=== PATIENT | female | born 1990 | race Caucasian/White ===

== ENCOUNTER 2016-09-22 16:02 | Emergency (ER) ==
[2016-09-22 16:33] LABS: MANUAL DIFF NEEDED? NO
[2016-09-22 16:36] LABS: BASO% 0.8 % (0.0-0.8); EOS# 0.17 X1000 (0.0-0.7); EOS% 2.3 % (0.0-10.0); HEMATOCRIT 40.6 % (37.0-47.0); IMM GRAN# 0.08 X1000 (0.0-0.04); IMM GRAN% 1.1 % (0.0-0.5); LYMPH# 2.41 X1000 (1.2-3.4); LYMPH% 32.8 % (20.5-51.1); MCH 32.3 PG (27-31); MCHC 34.5 g/dL (33-37); MCV 93.8 FL (81-99); MONO# 0.68 X1000 (0.11-0.59); MONO% 9.3 % (1.7-9.3); MPV 10.1 FL (7.4-10.4); NEUT% 53.7 % (42.2-75.2); PLT 270 X1000 (130-400); RBC 4.33 XMIL (4.2-5.4)
[2016-09-22 16:55] LABS: AGAP 9; ALBUMIN 4.3 g/dL (3.5-5.0); ALKALINE PHOSPHATASE 91 U/L (32-104); BUN 6 mg/dL (8-22); CALCIUM 9.1 mg/dL (8.8-10.2); CHLORIDE 103 mmol/L (98-107); COSMO 270; GOT 20 U/L (10-30); GPT 22 U/L (10-36); POTASSIUM 3.2 mmol/L (3.5-5.1); SODIUM 136 mmol/L (136-145); TCO2 23 mmol/L (25-35); TOTAL PROTEIN 7.5 g/dL (6.3-8.3)
--- NOTE | 2016-09-22 17:12 | EKG Report ---
Test Performed on : 09/22/2016 5:01:03 PM Test Reason : poss seizure Blood Pressure : / mmHG Vent. Rate : 105 BPM Atrial Rate : 105 BPM P-R Int : 138 ms QRS Dur : 078 ms QT Int : 328 ms P-R-T Axes : 056 015 062 degrees QTc Int : 433 ms Sinus tachycardia. Anterior infarct , age undetermined Abnormal ECG No previous ECGs available Unconfirmed Result
[2016-09-22 17:14] LABS: URINE SOURCE CLEAN CATCH
[2016-09-22 17:22] LABS: BILIRUBIN URINE NEGATIVE (NEGATIVE); BLOOD URINE NEGATIVE (NEGATIVE); CLARITY CLEAR (CLEAR); COLOR YELLOW; GLUCOSE URINE NEGATIVE (NEGATIVE); LEUKOCYTES URINE TRACE (NEGATIVE); NITRITE URINE NEGATIVE (NEGATIVE); PROTEIN URINE NEGATIVE (NEGATIVE); SP GRAVITY URINE 1.005; UROBILINOGEN URINE NORMAL
[2016-09-22 17:23] LABS: URINE CAST NONE SEEN /LPF; URINE CRYSTAL NONE SEEN /HPF; URINE CULTURE PL NEEDED? YES; URINE EPITHELIAL CELLS <10 /HPF (<10); URINE WBC <10 /HPF (<10)
[2016-09-22 17:32] LABS: UR AMPHETAMINES QUAL PRESUMPTIVE POSITIVE (NONE DETECT); UR BARBITUATES QUAL NONE DETECTED (NONE DETECT); UR BENZODIAZEPIN QUAL NONE DETECTED (NONE DETECT); UR CANNABINOIDS QUAL NONE DETECTED (NONE DETECT); UR COCAINE QUAL NONE DETECTED (NONE DETECT); UR MDMA QUAL NONE DETECTED (NONE DETECT); UR METHADONE QUAL NONE DETECTED (NONE DETECT); UR METHAMPHETAMINE QUAL NONE DETECTED (NONE DETECT); UR OPIATES QUAL NONE DETECTED (NONE DETECT); UR OXYCODONE QUAL NONE DETECTED (NONE DETECT); UR PCP QUAL NONE DETECTED (NONE DETECT); UR TCA QUAL NONE DETECTED (NONE DETECT)
[2016-09-22] MEDS ORDERED: KLOR-CON PO ONE (17:39)
--- NOTE | 2016-09-22 17:39 | PROVIDER DOCUMENTATION ---
HPI-General Adult - General Source: patient - History of Present Illness -Gen Adult Nature of Presenting Problems: Pt is 26 y/o F presents to the ED with possible seizure. EMS states Pt was at the movies and was laying on a bench just staring, so the person with her called EMS. Pt states hx of seizures. Location of Pain/Injury: reports: none Pain Radiation: reports: no radiation Quality of Pain: reports: none Onset/Duration: reports: just prior to arrival Context/Activities at Onset: reports: light activity Modifying Factors: improves with: nothing Associated Symptoms: reports: denies symptoms <Ary Humphries - Last Filed: 09/22/16 17:39> <Silvino Nava - Last Filed: 09/22/16 17:46> - General Chief Complaint: Seizure Stated Complaint: possible seizure Time Seen by Provider: 09/22/16 16:03 Allergies/Adverse Reactions: Patient Allergies Allergy/AdvReac Type Severity Reaction Status Date / Time No Known Allergies Allergy Verified 09/22/16 16:12 Home Medications: Home Medication List Medication Instructions Recorded Confirmed Last Taken Type Dextroamphetamine/Amphetamine 30 mg 09/22/16 09/22/16 History [Adderall Xr 30 mg Capsule] Divalproex E.r. [Depakote ER] 500 mg pe BID 09/22/16 09/22/16 09/22/16 History Sertraline HCl [Zoloft] 100 mg 09/22/16 09/22/16 History Temazepam [Restoril] 7.5 mg 09/22/16 Unknown History Topiramate [Topamax] 100 mg 09/22/16 09/22/16 History Valsartan [Diovan] 40 mg 09/22/16 09/22/16 History Review of Systems - Adult - REVIEW OF SYSTEMS - ADULT Constitutional: denies: chills, fever Eyes: denies: blurred vision, double vision Ears, Nose, Mouth & Throat: denies: ear pain, nose pain, throat pain Cardiovascular: reports: irregular heart rate ( tachy). denies: chest pain, heart murmur Respiratory: denies: cough, shortness of breath, wheezing Gastrointestinal: denies: abdominal pain, diarrhea, nausea, vomiting Genitourinary: denies: dysuria, hematuria Musculoskeletal: denies: bone pain, joint pain, neck pain Integumentary: denies: hives, itching Neurological: reports: seizure (possible). denies: dizziness/vertigo, headache/ migraines Psychiatric: reports: no symptoms reported Endocrine: reports: no symptoms reported Hematologic/Lymphatic: reports: no symptoms reported Allergic/Immunologic: reports: no symptoms reported All Other Systems: Reviewed and Negative <Lucy Humphriesomi - Last Filed: 09/22/16 17:39> Past History - Adult - PAST MEDICAL HISTORY-ADULT Review of Records: reports: Nursing Assessment Review, Medications Reviewed, Social history reviewed & non-contributory. Major Childhood Illnesses: reports: denies history Cardiovascular: reports: denies history Respiratory: reports: denies history Gastrointestinal: reports: denies history Obstetrical/Gynecological: reports: denies history Genitourinary: reports: denies history Musculoskeletal: reports: denies history Neurological: reports: Seizures/Epilepsy Endocrine/Immune: reports: denies history Other Conditions: reports: denies history - PRIOR SURGERIES/PROCEDURES Surgical/Procedure History: reports: reviewed, not pertinent - IMMUNIZATION STATUS Childhood Immunizations: See Nurse Assessment Flu Vaccine: See Nurse Assessment - FAMILY HISTORY Family History: reviewed, not pertinent - SOCIAL HISTORY Smoking: denies Substance Use: denies Living Situation: group (care home) <Miguel Humphriesi - Last Filed: 09/22/16 17:39> Physical Exam-General - PHYSICAL EXAM-ADULT Initial Vital Signs Reviewed: Yes - CONSTITUTIONAL General Appearance: appears well, alert, no apparent distress - EYES Eyes: PERRL/EOMI, pink conjunctivae, fundi clear, no AV nicking - HEAD, EARS, NOSE, MOUTH & THROAT HENMT: normocephalic/atraumatic, moist mucous membranes, normal ENT inspection, TMs normal, pharynx normal - NECK Neck: non-tender, full range of motion, supple, normal inspection - RESPIRATORY Respiratory: chest non-tender, lungs clear, normal breath sounds, no pleuratic chest pain, no respiratory distress, no accessory muscle use - CARDIOVASCULAR Cardiovascular: normal peripheral pulses, no edema, no gallop, no JVD, no murmur , tachycardia - GASTROINTESTINAL (ABDOMEN) Abdominal Exam: normal bowel sounds, non tender, soft, no organomegaly, no pulsatile mass - LYMPHATIC Lymphatic: no adenopathy - MUSCULOSKELETAL Back Exam: normal inspection, no CVA tenderness, no vertebral tenderness Extremity: normal range of motion, non-tender, normal gait, normal inspection, no pedal edema - SKIN Integumentary: normal color, normal turgor, warm/dry - NEUROLOGIC 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, grossly normal, no motor/sensory deficits - PSYCHIATRIC Psych/Mental Status: normal mood/affect, normal thought content, normal thought process, oriented x 3 <Ary Humphries - Last Filed: 09/22/16 17:39> Progress - PLAN OF CARE/RESULTS Progress/Plan/Lab Results: Laboratory Tests 09/22/16 09/22/16 09/22/16 16:30 16:30 16:55 WBC 7.34 RBC 4.33 Hgb 14.0 Hct 40.6 MCV 93.8 MCH 32.3 H MCHC 34.5 RDW Std Deviation 13.2 Plt Count 270 MPV 10.1 Immature Gran % (Auto) 1.1 H Neut % (Auto) 53.7 Lymph % (Auto) 32.8 [place] % (Auto) 9.3 Eos % (Auto) 2.3 Baso % (Auto) 0.8 Immature Gran # (Auto) 0.08 H Neut # (Auto) 3.94 Lymph # (Auto) 2.41 [place] # (Auto) 0.68 H Eos # (Auto) 0.17 Baso # (Auto) 0.06 Sodium 136 Potassium 3.2 L Chloride 103 Carbon Dioxide 23 L Anion Gap 9 BUN 6 L Creatinine 0.8 Estimated GFR/1.73 m2 > 60 BUN/Creatinine Ratio 8 Glucose 100 Calculated Osmolality 270 Calcium 9.1 Total Bilirubin 0.20 AST 20 ALT 22 Alkaline Phosphatase 91 Total Protein 7.5 Albumin 4.3 Globulin 3.0 Albumin/Globulin Ratio 1.0 Urine Source CLEAN CATCH Urine Color YELLOW Urine Clarity CLEAR Urine pH 8.0 Ur Specific [place] 1.005 Urine Protein NEGATIVE Urine Ketones NEGATIVE Urine Blood NEGATIVE Urine Nitrite NEGATIVE Urine Bilirubin NEGATIVE Urine Urobilinogen NORMAL Urine Microscopic RBC Not Reportable Urine WBC TRACE A Urine Microscopic WBC <10 Ur Epithelial Cells <10 Urine Crystals NONE SEEN Urine Bacteria 1+ Urine Casts NONE SEEN Urine Yeast NONE SEEN Urine Glucose NEGATIVE Urine Test Urine Opiates Screen Ur Oxycodone Screen Urine Methadone Screen Ur Barbituates Screen Ur Tricyclics Screen Ur Phencyclidine Scrn Ur Amphetamines Screen U Methamphetamines Scrn Urine MDMA Screen U Benzodiazepines Scrn Urine Cocaine Screen U Cannabinoids Screen 09/22/16 09/22/16 16:55 16:55 WBC RBC Hgb Hct MCV MCH MCHC RDW Std Deviation Plt Count MPV Immature Gran % (Auto) Neut % (Auto) Lymph % (Auto) [place] % (Auto) Eos % (Auto) Baso % (Auto) Immature Gran # (Auto) Neut # (Auto) Lymph # (Auto) [place] # (Auto) Eos # (Auto) Baso # (Auto) Sodium Potassium Chloride Carbon Dioxide Anion Gap BUN Creatinine Estimated GFR/1.73 m2 BUN/Creatinine Ratio Glucose Calculated Osmolality Calcium Total Bilirubin AST ALT Alkaline Phosphatase Total Protein Albumin Globulin Albumin/Globulin Ratio Urine Source Urine Color Urine Clarity Urine pH Ur Specific [place] Urine Protein Urine Ketones Urine Blood Urine Nitrite Urine Bilirubin Urine Urobilinogen Urine Microscopic RBC Urine WBC Urine Microscopic WBC Ur Epithelial Cells Urine Crystals Urine Bacteria Urine Casts Urine Yeast Urine Glucose Urine Test NEGATIVE Urine Opiates Screen NONE DETECTED Ur Oxycodone Screen NONE DETECTED Urine Methadone Screen NONE DETECTED Ur Barbituates Screen NONE DETECTED Ur Tricyclics Screen NONE DETECTED Ur Phencyclidine Scrn NONE DETECTED Ur Amphetamines Screen PRESUMPTIVE POSITIVE A U Methamphetamines Scrn NONE DETECTED Urine MDMA Screen NONE DETECTED U Benzodiazepines Scrn NONE DETECTED Urine Cocaine Screen NONE DETECTED U Cannabinoids Screen NONE DETECTED Orders Category Date Time Status ED: Urine Bedside ORDERED Care 09/22/16 16:08 Active Orthostatic Vital Signs NOW Care 09/22/16 16:08 Active Saline Loc NOW Care 09/22/16 16:08 Active CBC WITH DIFF [HEME] Stat Lab 09/22/16 16:30 Completed COMPREHENSIVE METABOLIC PANEL [CHEM] Stat Lab 09/22/16 16:30 Completed Depakote [VALPROIC ACID] [TDM] Stat Lab 09/22/16 16:30 Received TEST-URINE [PREG] Stat Lab 09/22/16 16:55 Completed UDS [URINE DRUG SCREEN PL] Stat Lab 09/22/16 16:[address] W/POSS RFLX CULT [URINALYSIS] Stat Lab 09/22/16 16:55 Completed URINE CULTURE [RM] Routine Lab 09/22/16 17:23 Ordered EKG [EKG] Stat Ther 09/22/16 16:08 Draft Vital Signs - 24 hr 09/22/16 09/22/16 16:07 17:14 Temperature 98.3 F Pulse Rate 108 H Pulse Rate [ 114 H Sitting] Pulse Rate [ 118 H Standing] Pulse Rate [ 105 H Supine] Respiratory 18 Rate Blood Pressure 137/85 Blood Pressure 121/92 [Sitting] Blood Pressure 132/84 [Standing] Blood Pressure 131/82 [Supine] O2 Sat by Pulse 99 Oximetry - EKG 1 Time of EKG reading by physician:: 17:01 EKG Read and Signed by:: Messi Kaiser EKG Interpretation (*Must complete 3 of following elements*): Abnormal Rate: 105 Rhythm: sinus tachycardia Comments: anterior infarct, age undetermined <Ary Humphries - Last Filed: 09/22/16 17:39> - PLAN OF CARE/RESULTS Progress/Plan/Lab Results: Laboratory Tests 09/22/16 09/22/16 09/22/16 16:30 16:30 16:55 WBC 7.34 RBC 4.33 Hgb 14.0 Hct 40.6 MCV 93.8 MCH 32.3 H MCHC 34.5 RDW Std Deviation 13.2 Plt Count 270 MPV 10.1 Immature Gran % (Auto) 1.1 H Neut % (Auto) 53.7 Lymph % (Auto) 32.8 [place] % (Auto) 9.3 Eos % (Auto) 2.3 Baso % (Auto) 0.8 Immature Gran # (Auto) 0.08 H Neut # (Auto) 3.94 Lymph # (Auto) 2.41 [place] # (Auto) 0.68 H Eos # (Auto) 0.17 Baso # (Auto) 0.06 Sodium 136 Potassium 3.2 L Chloride 103 Carbon Dioxide 23 L Anion Gap 9 BUN 6 L Creatinine 0.8 Estimated GFR/1.73 m2 > 60 BUN/Creatinine Ratio 8 Glucose 100 Calculated Osmolality 270 Calcium 9.1 Total Bilirubin 0.20 AST 20 ALT 22 Alkaline Phosphatase 91 Total Protein 7.5 Albumin 4.3 Globulin 3.0 Albumin/Globulin Ratio 1.0 Urine Source CLEAN CATCH Urine Color YELLOW Urine Clarity CLEAR Urine pH 8.0 Ur Specific [place] 1.005 Urine Protein NEGATIVE Urine Ketones NEGATIVE Urine Blood NEGATIVE Urine Nitrite NEGATIVE Urine Bilirubin NEGATIVE Urine Urobilinogen NORMAL Urine Microscopic RBC Not Reportable Urine WBC TRACE A Urine Microscopic WBC <10 Ur Epithelial Cells <10 Urine Crystals NONE SEEN Urine Bacteria 1+ Urine Casts NONE SEEN Urine Yeast NONE SEEN Urine Glucose NEGATIVE Urine Test Urine Opiates Screen Ur Oxycodone Screen Urine Methadone Screen Ur Barbituates Screen Ur Tricyclics Screen Ur Phencyclidine Scrn Ur Amphetamines Screen U Methamphetamines Scrn Urine MDMA Screen U Benzodiazepines Scrn Urine Cocaine Screen U Cannabinoids Screen 09/22/16 09/22/16 16:55 16:55 WBC RBC Hgb Hct MCV MCH MCHC RDW Std Deviation Plt Count MPV Immature Gran % (Auto) Neut % (Auto) Lymph % (Auto) [place] % (Auto) Eos % (Auto) Baso % (Auto) Immature Gran # (Auto) Neut # (Auto) Lymph # (Auto) [place] # (Auto) Eos # (Auto) Baso # (Auto) Sodium Potassium Chloride Carbon Dioxide Anion Gap BUN Creatinine Estimated GFR/1.73 m2 BUN/Creatinine Ratio Glucose Calculated Osmolality Calcium Total Bilirubin AST ALT Alkaline Phosphatase Total Protein Albumin Globulin Albumin/Globulin Ratio Urine Source Urine Color Urine Clarity Urine pH Ur Specific [place] Urine Protein Urine Ketones Urine Blood Urine Nitrite Urine Bilirubin Urine Urobilinogen Urine Microscopic RBC Urine WBC Urine Microscopic WBC Ur Epithelial Cells Urine Crystals Urine Bacteria Urine Casts Urine Yeast Urine Glucose Urine Test NEGATIVE Urine Opiates Screen NONE DETECTED Ur Oxycodone Screen NONE DETECTED Urine Methadone Screen NONE DETECTED Ur Barbituates Screen NONE DETECTED Ur Tricyclics Screen NONE DETECTED Ur Phencyclidine Scrn NONE DETECTED Ur Amphetamines Screen PRESUMPTIVE POSITIVE A U Methamphetamines Scrn NONE DETECTED Urine MDMA Screen NONE DETECTED U Benzodiazepines Scrn NONE DETECTED Urine Cocaine Screen NONE DETECTED U Cannabinoids Screen NONE DETECTED Orders Category Date Time Status ED: Urine Bedside ORDERED Care 09/22/16 16:08 Active Orthostatic Vital Signs NOW Care 09/22/16 16:08 Active Saline Loc NOW Care 09/22/16 16:08 Active CBC WITH DIFF [HEME] Stat Lab 09/22/16 16:30 Completed COMPREHENSIVE METABOLIC PANEL [CHEM] Stat Lab 09/22/16 16:30 Completed Depakote [VALPROIC ACID] [TDM] Stat Lab 09/22/16 16:30 Received TEST-URINE [PREG] Stat Lab 09/22/16 16:55 Completed UDS [URINE DRUG SCREEN PL] Stat Lab 09/22/16 16:[address] W/POSS RFLX CULT [URINALYSIS] Stat Lab 09/22/16 16:55 Completed URINE CULTURE [RM] Routine Lab 09/22/16 17:23 Ordered Potassium Chloride E.r. [Klor-Con] Med 09/22/16 17:39 Discontinued 20 meq PO NOW ONE EKG [EKG] Stat Ther 09/22/16 16:08 Draft Vital Signs Temp Pulse Pulse Pulse Pulse Resp BP 09/22/16 17:14 114 H 118 H 105 H 09/22/16 16:07 98.3 F 108 H 18 137/85 BP BP BP Pulse Ox 09/22/16 17:14 121/92 132/84 131/82 09/22/16 16:07 99 No Known Allergies Allergy (Verified 09/22/16 16:12) Dextroamphetamine/Amphetamine [Adderall Xr 30 mg Capsule] 30 mg 09/22/16 Divalproex E.r. [Depakote ER] 500 mg pe BID 09/22/16 Sertraline HCl [Zoloft] 100 mg 09/22/16 Temazepam [Restoril] 7.5 mg 09/22/16 Topiramate [Topamax] 100 mg 09/22/16 Valsartan [Diovan] 40 mg 09/22/16 Laboratory 09/22/16 09/22/16 09/22/16 16:55 16:55 16:55 WBC RBC Hgb Hct MCV MCH MCHC RDW Std Deviation Plt Count MPV Immature Gran % (Auto) Neut % (Auto) Lymph % (Auto) [place] % (Auto) Eos % (Auto) Baso % (Auto) Immature Gran # (Auto) Neut # (Auto) Lymph # (Auto) [place] # (Auto) Eos # (Auto) Baso # (Auto) Sodium Potassium Chloride Carbon Dioxide Anion Gap BUN Creatinine Estimated GFR/1.73 m2 BUN/Creatinine Ratio Glucose Calculated Osmolality Calcium Total Bilirubin AST ALT Alkaline Phosphatase Total Protein Albumin Globulin Albumin/Globulin Ratio Urine Source CLEAN CATCH Urine Color YELLOW Urine Clarity CLEAR Urine pH 8.0 Ur Specific [place] 1.005 Urine Protein NEGATIVE Urine Ketones NEGATIVE Urine Blood NEGATIVE Urine Nitrite NEGATIVE Urine Bilirubin NEGATIVE Urine Urobilinogen NORMAL Urine Microscopic RBC Not Reportable Urine WBC TRACE A Urine Microscopic WBC <10 Ur Epithelial Cells <10 Urine Crystals NONE SEEN Urine Bacteria 1+ Urine Casts NONE SEEN Urine Yeast NONE SEEN Urine Glucose NEGATIVE Urine Test NEGATIVE Urine Opiates Screen NONE DETECTED Ur Oxycodone Screen NONE DETECTED Urine Methadone Screen NONE DETECTED Ur Barbituates Screen NONE DETECTED Ur Tricyclics Screen NONE DETECTED Ur Phencyclidine Scrn NONE DETECTED Ur Amphetamines Screen PRESUMPTIVE POSITIVE A U Methamphetamines Scrn NONE DETECTED Urine MDMA Screen NONE DETECTED U Benzodiazepines Scrn NONE DETECTED Urine Cocaine Screen NONE DETECTED U Cannabinoids Screen NONE DETECTED 09/22/16 09/22/16 16:30 16:30 WBC 7.34 RBC 4.33 Hgb 14.0 Hct 40.6 MCV 93.8 MCH 32.3 H MCHC 34.5 RDW Std Deviation 13.2 Plt Count 270 MPV 10.1 Immature Gran % (Auto) 1.1 H Neut % (Auto) 53.7 Lymph % (Auto) 32.8 [place] % (Auto) 9.3 Eos % (Auto) 2.3 Baso % (Auto) 0.8 Immature Gran # (Auto) 0.08 H Neut # (Auto) 3.94 Lymph # (Auto) 2.41 [place] # (Auto) 0.68 H Eos # (Auto) 0.17 Baso # (Auto) 0.06 Sodium 136 Potassium 3.2 L Chloride 103 Carbon Dioxide 23 L Anion Gap 9 BUN 6 L Creatinine 0.8 Estimated GFR/1.73 m2 > 60 BUN/Creatinine Ratio 8 Glucose 100 Calculated Osmolality 270 Calcium 9.1 Total Bilirubin 0.20 AST 20 ALT 22 Alkaline Phosphatase 91 Total Protein 7.5 Albumin 4.3 Globulin 3.0 Albumin/Globulin Ratio 1.0 Urine Source Urine Color Urine Clarity Urine pH Ur Specific [place] Urine Protein Urine Ketones Urine Blood Urine Nitrite Urine Bilirubin Urine Urobilinogen Urine Microscopic RBC Urine WBC Urine Microscopic WBC Ur Epithelial Cells Urine Crystals Urine Bacteria Urine Casts Urine Yeast Urine Glucose Urine Test Urine Opiates Screen Ur Oxycodone Screen Urine Methadone Screen Ur Barbituates Screen Ur Tricyclics Screen Ur Phencyclidine Scrn Ur Amphetamines Screen U Methamphetamines Scrn Urine MDMA Screen U Benzodiazepines Scrn Urine Cocaine Screen U Cannabinoids Screen Pt is feeling very well. discussed case c family. Will d/c home. They are in agreement. <Silvino Nava - Last Filed: 09/22/16 17:46> Departure <Ary Humphries - Last Filed: 09/22/16 17:39> - Departure Time of Disposition Order: 17:45 Certified Medical Emergency: Emergent <Silvino Nava - Last Filed: 09/22/16 17:46> - Departure DIAGNOSIS: Seizure, Hypokalemia Disposition: HOME 01 Condition: Good Additional Instructions: Follow up with your primary care provider. ED Follow Up Instructions: You have been treated by a care provider in the Emergency Department. These instructions are being provided to you so you can have an understanding of how to care for yourself upon discharge. Upon discharge from the Emergency Department, you are responsible for making arrangements for follow-up care by a physician of your choice. Take all prescribed medications as directed. Return to the Emergency Department immediately for any new or worsening symptoms. You may call the Physician Referral phone number at [phone] to obtain a list of Physicians who are taking new patients. Referrals: Remington Donnelly MD [Primary Care Provider] - Attestation - Scribe Verification/Attestation Scribe:: Ary Humphries Acting as Scribe for:: Silvino Nava Scribe documention review:: This chart was documented by a scribe and accurately reflects the service the provider performed and the decisions made by the provider. <Ary Humphries - Last Filed: 09/22/16 17:39> - Physician/ NADYA Attestation Patient care was provided by Advanced Practice Provider:: Yes Advanced Practice Provider:: Silvino Nava Advanced Practice Provider documentation review:: The Mid-level provider documentation, treatment plan and medical decision making was reviewed by the physician who agrees with all treatment and medical decision making by the MLP. <Silvino Nava - Last Filed: 09/22/16 17:46> Physician Attestation
[2016-09-22 17:52] VITALS: BP 131/81
== END 2016-09-22 18:04 | disposition home or self-care (01) ==
LOC: P.ED 16:02
DX: R56.9 Unspecified convulsions (principal); E87.6 Hypokalemia; R00.0 Tachycardia, unspecified; Z79.899 Other long term (current) drug therapy
CPT/HCPCS: 80053; 80165; 80305; 81001; 81025; 85025; 87088; 93005; 99284